=== PATIENT | female | born 1935 | race Caucasian/White ===

== ENCOUNTER 2018-11-01 11:25 | Inpatient (IN) ==
[2018-11-01 12:19] LABS: Basophils % 0.2 % (0.0-0.8); Eosinophils # 0.1 10*3/uL (0.0-0.87); Eosinophils % 0.6 % (0.00-10.9); Hematocrit 28.4 VOL% (35.7-47.0); Hemoglobin 8.5 GM/DL (12.0-16.0); Immature Granulocytes % 0.6 %; Immature Granulocytes Absolute 0.05 #; Lymphocytes # 0.7 10*3/uL (1.4-4.0); Lymphocytes % 7.8 % (21.3-54.2); Mean Corpuscular HGB Conc 29.9 GM/DL (32-36); Mean Corpuscular Hemoglobin 29 PG (27-34); Mean Corpuscular Volume 96.3 FL (87-102); Mean Platelet Volume 10.1 FL (9.6-12.0); Monocytes # 0.8 10*3/uL (0.11-0.8); Monocytes % 9.2 % (1.7-12.7); Neutrophils # 6.9 10*3/uL (1.4-7.4); Neutrophils % 81.6 % (38.7-73.9); Platelet Count 159 T/CUMM (130-400); Red Blood Count 2.95 MC/CUMM (3.8-5.5); Red Cell Distribution Width 12.8 % (9.3-17.3); White Blood Count 8.5 T/CUMM (4-12)
[2018-11-01 12:37] LABS: Albumin 2.5 G/DL (3.4-5.0); Bilirubin,Total 0.9 MG/DL (0.2-1.0); Calcium 8.3 MG/DL (8.5-10.1); Osmolality,Calculated 282.4 MOS/KG (273-304); Potassium 3.1 MMOL/L (3.5-5.1); Total Protein 5.9 G/DL (6.4-8.3)
[2018-11-01] MEDS ORDERED: SODIUM CHLORIDE 0.9% 500 ML IV STA (14:17)
[2018-11-01] MEDS ORDERED: INFLUENZA VIRUS VACCINE 0.5 ML SYRINGE IM ONE (16:30)
[2018-11-01] MEDS: ONDANSETRON 4 MG/2 ML VIAL IV PRN ×2 (16:52→23:34)
[2018-11-01] MEDS: ACETAMINOPHEN 325 MG TABLET PO PRN (16:53)
[2018-11-01] MEDS ORDERED: AZITHROMYCIN INJ 500 MG in SODIUM CHLORIDE 0.9% 250 ML IV SCH (17:00)
[2018-11-01] MEDS ORDERED: MAGNESIUM SULF RIDER 4 GM in PREMIX 1 EACH IV PRN (17:18)
[2018-11-01] MEDS: LEVOFLOXACIN INJ 500 MG in PREMIX 1 EACH IV SCH (17:45)
[2018-11-01] MEDS: SIMVASTATIN 20 MG TABLET PO SCH (17:45)
[2018-11-01] MEDS: ALBUTEROL/IPRATROPIUM 3 ML NEB RESP TX SCH ×2 (19:48→23:41)
[2018-11-01] MEDS: BUDESONIDE/FORMOTEROL 160-4.5 INHALER 6 GM INH SCH (23:27)
[2018-11-01] MEDS: FOLIC ACID 1 MG TABLET PO SCH (23:28)
[2018-11-01] MEDS: POTASSIUM CHLORIDE 20 MEQ TABLET PO PRN (23:28)
[2018-11-01] MEDS: SILDENAFIL 20 MG TABLET PO SCH (23:29)
[2018-11-01] MEDS: FERROUS SULFATE 325 MG TABLET PO SCH (23:29)
[2018-11-01] MEDS: MAGNESIUM SULF RIDER 2 GM in PREMIX 1 EACH IV PRN (23:30)
[2018-11-01] MEDS: ZINC GLUCONATE 50 MG TABLET PO SCH (23:30)
[2018-11-01] MEDS: ASCORBIC ACID 500 MG TABLET PO SCH (23:35)
[2018-11-02] MEDS: MAGNESIUM SULF RIDER 2 GM in PREMIX 1 EACH IV PRN (00:46)
[2018-11-02] MEDS: ACETAMINOPHEN 325 MG TABLET PO PRN ×2 (00:49→16:55)
[2018-11-02] MEDS: ALBUTEROL/IPRATROPIUM 3 ML NEB RESP TX SCH ×6 (03:16→23:51)
[2018-11-02 04:03] LABS: Basophils % 0.3 % (0.0-0.8); Eosinophils % 0.6 % (0.00-10.9); Hematocrit 25.5 VOL% (35.7-47.0); Hemoglobin 7.7 GM/DL (12.0-16.0); Immature Granulocytes % 1.1 %; Immature Granulocytes Absolute 0.07 #; Lymphocytes # 0.8 10*3/uL (1.4-4.0); Lymphocytes % 11.9 % (21.3-54.2); Mean Corpuscular HGB Conc 30.2 GM/DL (32-36); Mean Corpuscular Hemoglobin 29 PG (27-34); Mean Corpuscular Volume 95.5 FL (87-102); Mean Platelet Volume 9.8 FL (9.6-12.0); Monocytes # 0.6 10*3/uL (0.11-0.8); Monocytes % 9.5 % (1.7-12.7); Neutrophils # 5.1 10*3/uL (1.4-7.4); Neutrophils % 76.6 % (38.7-73.9); Platelet Count 156 T/CUMM (130-400); Red Blood Count 2.67 MC/CUMM (3.8-5.5); Red Cell Distribution Width 12.8 % (9.3-17.3); White Blood Count 6.6 T/CUMM (4-12)
[2018-11-02 04:38] LABS: Calcium 8.8 MG/DL (8.5-10.1); Osmolality,Calculated 278.7 MOS/KG (273-304); Risk Ratio 3.15; VLDL CHOLESTEROL 25.4 MG/DL
[2018-11-02] MEDS: LEVOTHYROXINE 75 MCG TABLET PO SCH (07:04)
[2018-11-02] MEDS: POTASSIUM CHLORIDE 20 MEQ TABLET PO PRN ×2 (07:04→16:51)
[2018-11-02] MEDS ORDERED: SODIUM CHLORIDE 0.9% 1,000 ML IV PRN (08:34)
[2018-11-02] MEDS: PANTOPRAZOLE 40 MG TABLET PO SCH (08:51)
[2018-11-02] MEDS: metOLazone 2.5 MG TABLET PO SCH (08:51)
[2018-11-02] MEDS: TERAZOSIN 5 MG CAPSULE PO SCH (08:51)
[2018-11-02] MEDS: SILDENAFIL 20 MG TABLET PO SCH ×3 (08:51→21:20)
[2018-11-02] MEDS: ASPIRIN CHEW 81 MG TABLET PO SCH (08:51)
[2018-11-02] MEDS: POTASSIUM CHLORIDE 20 MEQ TABLET PO SCH (08:51)
[2018-11-02] MEDS: BUDESONIDE/FORMOTEROL 160-4.5 INHALER 6 GM INH SCH ×2 (08:52→21:20)
[2018-11-02] MEDS: BUMETANIDE 1 MG/4 ML VIAL IV SCH (08:52)
[2018-11-02] MEDS: CLINDAMYCIN INJ 600 MG in PREMIX 1 EACH IV SCH ×2 (11:26→21:18)
[2018-11-02] MEDS: SIMVASTATIN 20 MG TABLET PO SCH (16:50)
[2018-11-02] MEDS: LEVOFLOXACIN INJ 500 MG in PREMIX 1 EACH IV SCH (16:51)
[2018-11-02] MEDS ORDERED: POTASSIUM BICARB EFFERVESCENT 25 MEQ TABLET PO ONE (17:42)
[2018-11-02] MEDS ORDERED: VANCOMYCIN INJ 1,500 MG in SODIUM CHLORIDE 0.9% 500 ML IV SCH (20:00)
[2018-11-02] MEDS: ZINC OXIDE PASTE 113 GM TUBE TOP SCH (21:20)
[2018-11-02] MEDS: FOLIC ACID 1 MG TABLET PO SCH (21:20)
[2018-11-02] MEDS: ZINC GLUCONATE 50 MG TABLET PO SCH (21:20)
[2018-11-02] MEDS: FERROUS SULFATE 325 MG TABLET PO SCH (21:20)
[2018-11-02] MEDS: ASCORBIC ACID 500 MG TABLET PO SCH (21:20)
[2018-11-03] MEDS: ALBUTEROL/IPRATROPIUM 3 ML NEB RESP TX SCH ×6 (03:42→23:56)
[2018-11-03 04:31] LABS: Basophils % 0.4 % (0.0-0.8); Eosinophils # 0.1 10*3/uL (0.0-0.87); Eosinophils % 1.9 % (0.00-10.9); Hematocrit 28.8 VOL% (35.7-47.0); Hemoglobin 8.6 GM/DL (12.0-16.0); Immature Granulocytes % 1.3 %; Immature Granulocytes Absolute 0.06 #; Lymphocytes # 0.5 10*3/uL (1.4-4.0); Lymphocytes % 10.9 % (21.3-54.2); Mean Corpuscular HGB Conc 29.9 GM/DL (32-36); Mean Corpuscular Hemoglobin 29 PG (27-34); Mean Corpuscular Volume 95.7 FL (87-102); Mean Platelet Volume 9.9 FL (9.6-12.0); Monocytes # 0.5 10*3/uL (0.11-0.8); Monocytes % 10.3 % (1.7-12.7); Neutrophils # 3.6 10*3/uL (1.4-7.4); Neutrophils % 75.2 % (38.7-73.9); Platelet Count 148 T/CUMM (130-400); Red Blood Count 3.01 MC/CUMM (3.8-5.5); Red Cell Distribution Width 13.9 % (9.3-17.3); White Blood Count 4.8 T/CUMM (4-12)
[2018-11-03 04:59] LABS: Calcium 8.4 MG/DL (8.5-10.1); Osmolality,Calculated 283.3 MOS/KG (273-304); Potassium 3.8 MMOL/L (3.5-5.1)
[2018-11-03] MEDS: LEVOTHYROXINE 75 MCG TABLET PO SCH (06:02)
[2018-11-03] MEDS: metOLazone 2.5 MG TABLET PO SCH (09:11)
[2018-11-03] MEDS: TERAZOSIN 5 MG CAPSULE PO SCH (09:12)
[2018-11-03] MEDS: BUMETANIDE 1 MG/4 ML VIAL IV SCH (09:12)
[2018-11-03] MEDS: POTASSIUM CHLORIDE 20 MEQ TABLET PO SCH (09:12)
[2018-11-03] MEDS: PANTOPRAZOLE 40 MG TABLET PO SCH (09:12)
[2018-11-03] MEDS: ASPIRIN CHEW 81 MG TABLET PO SCH (09:12)
[2018-11-03] MEDS: SILDENAFIL 20 MG TABLET PO SCH ×3 (09:12→21:34)
[2018-11-03] MEDS: ZINC OXIDE PASTE 113 GM TUBE TOP SCH ×2 (09:16→22:22)
[2018-11-03] MEDS: BUDESONIDE/FORMOTEROL 160-4.5 INHALER 6 GM INH SCH ×2 (09:17→22:22)
[2018-11-03] MEDS: ACETAMINOPHEN 325 MG TABLET PO PRN ×3 (09:53→21:40)
[2018-11-03] MEDS: CLINDAMYCIN INJ 600 MG in PREMIX 1 EACH IV SCH ×2 (12:15→22:22)
[2018-11-03] MEDS: LEVOFLOXACIN INJ 500 MG in PREMIX 1 EACH IV SCH (16:46)
[2018-11-03] MEDS: SIMVASTATIN 20 MG TABLET PO SCH (16:47)
[2018-11-03] MEDS: POLYETHYLENE GLYCOL POWDER 17 GM PACK PO PRN (16:53)
[2018-11-03] MEDS: FERROUS SULFATE 325 MG TABLET PO SCH (21:34)
[2018-11-03] MEDS: ASCORBIC ACID 500 MG TABLET PO SCH (21:34)
[2018-11-03] MEDS: FOLIC ACID 1 MG TABLET PO SCH (21:34)
[2018-11-03] MEDS: ZINC GLUCONATE 50 MG TABLET PO SCH (21:34)
[2018-11-04] MEDS: ACETAMINOPHEN 325 MG TABLET PO PRN ×2 (02:07→21:50)
[2018-11-04] MEDS: ALBUTEROL/IPRATROPIUM 3 ML NEB RESP TX SCH ×6 (04:12→23:26)
[2018-11-04] MEDS: CLINDAMYCIN INJ 600 MG in PREMIX 1 EACH IV SCH ×3 (05:16→22:01)
[2018-11-04 06:19] LABS: Basophils % 0.2 % (0.0-0.8); Eosinophils # 0.2 10*3/uL (0.0-0.87); Eosinophils % 3.6 % (0.00-10.9); Hematocrit 28.5 VOL% (35.7-47.0); Hemoglobin 8.5 GM/DL (12.0-16.0); Immature Granulocytes % 1.3 %; Immature Granulocytes Absolute 0.06 #; Lymphocytes # 0.6 10*3/uL (1.4-4.0); Lymphocytes % 12.1 % (21.3-54.2); Mean Corpuscular HGB Conc 29.8 GM/DL (32-36); Mean Corpuscular Hemoglobin 29 PG (27-34); Mean Platelet Volume 9.7 FL (9.6-12.0); Monocytes # 0.4 10*3/uL (0.11-0.8); Monocytes % 9.3 % (1.7-12.7); Neutrophils # 3.5 10*3/uL (1.4-7.4); Neutrophils % 73.5 % (38.7-73.9); Platelet Count 158 T/CUMM (130-400); Red Blood Count 2.97 MC/CUMM (3.8-5.5); Red Cell Distribution Width 13.3 % (9.3-17.3); White Blood Count 4.7 T/CUMM (4-12)
[2018-11-04] MEDS: LEVOTHYROXINE 75 MCG TABLET PO SCH (06:19)
[2018-11-04 06:30] LABS: Osmolality,Calculated 281.5 MOS/KG (273-304); Potassium 3.6 MMOL/L (3.5-5.1)
[2018-11-04] MEDS: ASPIRIN CHEW 81 MG TABLET PO SCH (10:18)
[2018-11-04] MEDS: POTASSIUM CHLORIDE 20 MEQ TABLET PO SCH (10:19)
[2018-11-04] MEDS: PANTOPRAZOLE 40 MG TABLET PO SCH (10:19)
[2018-11-04] MEDS: TERAZOSIN 5 MG CAPSULE PO SCH (10:19)
[2018-11-04] MEDS: SILDENAFIL 20 MG TABLET PO SCH ×3 (10:19→21:47)
[2018-11-04] MEDS: metOLazone 2.5 MG TABLET PO SCH (10:19)
[2018-11-04] MEDS: POTASSIUM CHLORIDE 20 MEQ TABLET PO PRN (10:20)
[2018-11-04] MEDS: ZINC OXIDE PASTE 113 GM TUBE TOP SCH ×2 (10:22→21:43)
[2018-11-04] MEDS: BUMETANIDE 1 MG/4 ML VIAL IV SCH (10:22)
[2018-11-04] MEDS: BUDESONIDE/FORMOTEROL 160-4.5 INHALER 6 GM INH SCH ×2 (10:22→21:52)
[2018-11-04] MEDS: LEVOFLOXACIN INJ 500 MG in PREMIX 1 EACH IV SCH (16:16)
[2018-11-04] MEDS: SIMVASTATIN 20 MG TABLET PO SCH (16:18)
[2018-11-04] MEDS: LACTULOSE 20 GM/30 ML UDCUP PO PRN (16:24)
[2018-11-04] MEDS: DOCUSATE SODIUM 100 MG CAPSULE PO PRN (16:24)
[2018-11-04] MEDS: FOLIC ACID 1 MG TABLET PO SCH (21:42)
[2018-11-04] MEDS: BACITRACIN OINT 0.9 GM PACK TOP SCH (21:42)
[2018-11-04] MEDS: FERROUS SULFATE 325 MG TABLET PO SCH (21:42)
[2018-11-04] MEDS: ZINC GLUCONATE 50 MG TABLET PO SCH (21:47)
[2018-11-04] MEDS: ASCORBIC ACID 500 MG TABLET PO SCH (21:50)
[2018-11-05] MEDS: ALBUTEROL/IPRATROPIUM 3 ML NEB RESP TX SCH ×6 (04:01→23:48)
[2018-11-05] MEDS: CLINDAMYCIN INJ 600 MG in PREMIX 1 EACH IV SCH ×3 (05:32→23:40)
[2018-11-05] MEDS: LEVOTHYROXINE 75 MCG TABLET PO SCH (06:02)
[2018-11-05] MEDS: SILDENAFIL 20 MG TABLET PO SCH ×3 (08:16→21:58)
[2018-11-05] MEDS: BACITRACIN OINT 0.9 GM PACK TOP SCH (08:16)
[2018-11-05] MEDS: POTASSIUM CHLORIDE 20 MEQ TABLET PO SCH (08:16)
[2018-11-05] MEDS: metOLazone 2.5 MG TABLET PO SCH (08:16)
[2018-11-05] MEDS: TERAZOSIN 5 MG CAPSULE PO SCH (08:16)
[2018-11-05] MEDS: ASPIRIN CHEW 81 MG TABLET PO SCH (08:17)
[2018-11-05] MEDS: PANTOPRAZOLE 40 MG TABLET PO SCH (08:17)
[2018-11-05] MEDS: BUDESONIDE/FORMOTEROL 160-4.5 INHALER 6 GM INH SCH ×2 (08:17→21:58)
[2018-11-05] MEDS: ZINC OXIDE PASTE 113 GM TUBE TOP SCH ×2 (08:17→21:58)
[2018-11-05] MEDS: BUMETANIDE 1 MG/4 ML VIAL IV SCH (08:17)
[2018-11-05] MEDS ORDERED: TUBERCULIN SKIN TEST 0.1 ML SYRINGE INTRADERM ONE (12:59)
[2018-11-05] MEDS: SIMVASTATIN 20 MG TABLET PO SCH (16:00)
[2018-11-05] MEDS: LEVOFLOXACIN INJ 500 MG in PREMIX 1 EACH IV SCH (16:03)
[2018-11-05] MEDS: FERROUS SULFATE 325 MG TABLET PO SCH (21:58)
[2018-11-05] MEDS: FOLIC ACID 1 MG TABLET PO SCH (21:58)
[2018-11-05] MEDS: ASCORBIC ACID 500 MG TABLET PO SCH (21:59)
[2018-11-05] MEDS: ZINC GLUCONATE 50 MG TABLET PO SCH (21:59)
[2018-11-06] MEDS: ALBUTEROL/IPRATROPIUM 3 ML NEB RESP TX SCH ×6 (03:38→23:25)
[2018-11-06 05:40] LABS: Calcium 8.5 MG/DL (8.5-10.1); Osmolality,Calculated 283.4 MOS/KG (273-304); Potassium 3.6 MMOL/L (3.5-5.1)
[2018-11-06] MEDS: CLINDAMYCIN INJ 600 MG in PREMIX 1 EACH IV SCH ×3 (06:00→21:13)
[2018-11-06] MEDS: LEVOTHYROXINE 75 MCG TABLET PO SCH (07:49)
[2018-11-06] MEDS: PANTOPRAZOLE 40 MG TABLET PO SCH (08:19)
[2018-11-06] MEDS: TERAZOSIN 5 MG CAPSULE PO SCH (08:19)
[2018-11-06] MEDS: ASPIRIN CHEW 81 MG TABLET PO SCH (08:19)
[2018-11-06] MEDS: BUMETANIDE 1 MG/4 ML VIAL IV SCH (08:19)
[2018-11-06] MEDS: SILDENAFIL 20 MG TABLET PO SCH ×3 (08:19→20:43)
[2018-11-06] MEDS: POTASSIUM CHLORIDE 20 MEQ TABLET PO SCH (08:19)
[2018-11-06] MEDS: BUDESONIDE/FORMOTEROL 160-4.5 INHALER 6 GM INH SCH ×2 (08:20→20:43)
[2018-11-06] MEDS: BACITRACIN OINT 0.9 GM PACK TOP SCH (08:20)
[2018-11-06] MEDS: ZINC OXIDE PASTE 113 GM TUBE TOP SCH ×2 (08:20→20:43)
[2018-11-06] MEDS: DICLOFENAC 1% GEL 100 GM TUBE TOP SCH ×2 (14:53→20:42)
[2018-11-06] MEDS: LEVOFLOXACIN INJ 500 MG in PREMIX 1 EACH IV SCH (16:24)
[2018-11-06] MEDS: SIMVASTATIN 20 MG TABLET PO SCH (16:59)
[2018-11-06] MEDS: LACTULOSE 20 GM/30 ML UDCUP PO PRN (20:42)
[2018-11-06] MEDS: ZINC GLUCONATE 50 MG TABLET PO SCH (20:42)
[2018-11-06] MEDS: ASCORBIC ACID 500 MG TABLET PO SCH (20:42)
[2018-11-06] MEDS: POLYETHYLENE GLYCOL POWDER 17 GM PACK PO PRN (20:42)
[2018-11-06] MEDS: FOLIC ACID 1 MG TABLET PO SCH (20:43)
[2018-11-06] MEDS: ACETAMINOPHEN 325 MG TABLET PO PRN (20:43)
[2018-11-06] MEDS: FERROUS SULFATE 325 MG TABLET PO SCH (20:43)
[2018-11-07] MEDS: ALBUTEROL/IPRATROPIUM 3 ML NEB RESP TX SCH ×5 (03:20→20:36)
[2018-11-07 05:03] LABS: Basophils % 0.4 % (0.0-0.8); Eosinophils # 0.2 10*3/uL (0.0-0.87); Eosinophils % 3.4 % (0.00-10.9); Hematocrit 28.5 VOL% (35.7-47.0); Hemoglobin 8.5 GM/DL (12.0-16.0); Immature Granulocytes % 1.1 %; Immature Granulocytes Absolute 0.06 #; Lymphocytes # 0.8 10*3/uL (1.4-4.0); Mean Corpuscular HGB Conc 29.8 GM/DL (32-36); Mean Corpuscular Hemoglobin 29 PG (27-34); Mean Corpuscular Volume 96.6 FL (87-102); Mean Platelet Volume 10.2 FL (9.6-12.0); Monocytes # 0.4 10*3/uL (0.11-0.8); Monocytes % 7.7 % (1.7-12.7); Neutrophils # 4.1 10*3/uL (1.4-7.4); Neutrophils % 72.4 % (38.7-73.9); Platelet Count 156 T/CUMM (130-400); Red Blood Count 2.95 MC/CUMM (3.8-5.5); Red Cell Distribution Width 12.7 % (9.3-17.3); White Blood Count 5.6 T/CUMM (4-12)
[2018-11-07 06:38] LABS: Calcium 8.1 MG/DL (8.5-10.1); Osmolality,Calculated 286.1 MOS/KG (273-304); Potassium 3.4 MMOL/L (3.5-5.1)
[2018-11-07] MEDS: CLINDAMYCIN INJ 600 MG in PREMIX 1 EACH IV SCH ×3 (06:44→21:30)
[2018-11-07] MEDS: LEVOTHYROXINE 75 MCG TABLET PO SCH (06:57)
[2018-11-07] MEDS: TERAZOSIN 5 MG CAPSULE PO SCH (08:15)
[2018-11-07] MEDS: SILDENAFIL 20 MG TABLET PO SCH ×3 (08:15→20:45)
[2018-11-07] MEDS: POTASSIUM CHLORIDE 20 MEQ TABLET PO SCH (08:15)
[2018-11-07] MEDS: ASPIRIN CHEW 81 MG TABLET PO SCH (08:15)
[2018-11-07] MEDS: ACETAMINOPHEN 325 MG TABLET PO PRN (08:15)
[2018-11-07] MEDS: BACITRACIN OINT 0.9 GM PACK TOP SCH (08:16)
[2018-11-07] MEDS: BUMETANIDE 1 MG/4 ML VIAL IV SCH (08:16)
[2018-11-07] MEDS: ZINC OXIDE PASTE 113 GM TUBE TOP SCH ×2 (08:16→20:47)
[2018-11-07] MEDS: BUDESONIDE/FORMOTEROL 160-4.5 INHALER 6 GM INH SCH ×2 (08:16→20:47)
[2018-11-07] MEDS: DICLOFENAC 1% GEL 100 GM TUBE TOP SCH ×3 (08:16→20:47)
[2018-11-07] MEDS: PANTOPRAZOLE 40 MG TABLET PO SCH (08:20)
[2018-11-07] MEDS ORDERED: traMADol 50 MG TABLET PO PRN (12:08)
[2018-11-07] MEDS: POTASSIUM CHLORIDE 20 MEQ TABLET PO PRN ×2 (14:19→20:46)
[2018-11-07] MEDS: LEVOFLOXACIN INJ 500 MG in PREMIX 1 EACH IV SCH (16:02)
[2018-11-07] MEDS: SIMVASTATIN 20 MG TABLET PO SCH (16:08)
[2018-11-07] MEDS: FOLIC ACID 1 MG TABLET PO SCH (20:45)
[2018-11-07] MEDS: POLYETHYLENE GLYCOL POWDER 17 GM PACK PO PRN (20:45)
[2018-11-07] MEDS: DOCUSATE SODIUM 100 MG CAPSULE PO PRN (20:46)
[2018-11-07] MEDS: FERROUS SULFATE 325 MG TABLET PO SCH (20:46)
[2018-11-07] MEDS: ASCORBIC ACID 500 MG TABLET PO SCH (20:46)
[2018-11-07] MEDS: ZINC GLUCONATE 50 MG TABLET PO SCH (20:48)
[2018-11-08] MEDS: ALBUTEROL/IPRATROPIUM 3 ML NEB RESP TX SCH ×4 (00:41→11:16)
[2018-11-08] MEDS: LEVOTHYROXINE 75 MCG TABLET PO SCH (06:35)
[2018-11-08] MEDS: CLINDAMYCIN INJ 600 MG in PREMIX 1 EACH IV SCH ×2 (06:35→15:23)
[2018-11-08] MEDS: ASPIRIN CHEW 81 MG TABLET PO SCH (08:46)
[2018-11-08] MEDS: PANTOPRAZOLE 40 MG TABLET PO SCH (08:46)
[2018-11-08] MEDS: DOCUSATE SODIUM 100 MG CAPSULE PO PRN (08:46)
[2018-11-08] MEDS: POTASSIUM CHLORIDE 20 MEQ TABLET PO SCH (08:46)
[2018-11-08] MEDS: SILDENAFIL 20 MG TABLET PO SCH (08:46)
[2018-11-08] MEDS: BUMETANIDE 1 MG/4 ML VIAL IV SCH (08:46)
[2018-11-08] MEDS: TERAZOSIN 5 MG CAPSULE PO SCH (08:46)
[2018-11-08] MEDS: BUDESONIDE/FORMOTEROL 160-4.5 INHALER 6 GM INH SCH (08:47)
[2018-11-08] MEDS: DICLOFENAC 1% GEL 100 GM TUBE TOP SCH (08:47)
[2018-11-08] MEDS ORDERED: metOLazone 2.5 MG TABLET PO SCH (09:00)
[2018-11-08 15:14] VITALS: BP 116/54
[2018-11-08] MEDS: ZINC OXIDE PASTE 113 GM TUBE TOP SCH (15:17)
[2018-11-08] MEDS: BACITRACIN OINT 0.9 GM PACK TOP SCH (15:17)
== END 2018-11-08 14:06 | DRG 194 ==
LOC: EDUNIT# → EDBD → N.ED 11:25 → N.EDINP 14:27 → SUATTDRO 14:27 → N.EDINP 15:36 → N.5E 15:52
PROVIDERS: ADMIT Internal Medicine; ATTEND Internal Medicine

== ENCOUNTER 2019-08-29 12:59 | Inpatient (IN) ==
[2019-08-29] MEDS ORDERED: NOREPINEPHRINE 4 MG/4 ML VIAL IV ONE (15:40)
[2019-08-29] MEDS ORDERED: NOREPINEPHRINE 8 MG in SODIUM CHLORIDE 0.9% 242 ML IV PRN (15:42)
[2019-08-29] MEDS ORDERED: LORazepam INJ 40 MG in DEXTROSE 5% 30 ML IV PRN (15:45)
[2019-08-29] MEDS ORDERED: MIDAZOLAM 100 MG in SODIUM CHLORIDE 0.9% 80 ML IV PRN (15:45)
[2019-08-29] MEDS: SODIUM CHLORIDE 0.9% 1,000 ML IV SCH (15:52)
[2019-08-29 16:07] LABS: ABG Base Excess 6.9 MMOL/L (-2.5-2.5); ABG HCO3 30.8 MMOL/L (20-26); ABG PCO2 68.8 MM HG (35-48); ABG PH 7.312 (7.35-7.45); ABG TCO2 32.7 MMOL/L (23-27); Allen Test Positive; Pt O2 Delivery Device Ventilator
[2019-08-29] MEDS ORDERED: ALBUTEROL 2.5 MG/3 ML NEB RESP TX PRN (16:18)
[2019-08-29] MEDS ORDERED: POTASSIUM CHLORIDE RIDER 10 MEQ in PREMIX 1 EACH IV PRN (16:22)
[2019-08-29] MEDS ORDERED: GLUCAGON 1 MG VIAL IM PRN (16:39)
[2019-08-29] MEDS ORDERED: MAGNESIUM SULF RIDER 4 GM in PREMIX 1 EACH IV PRN (16:39)
[2019-08-29] MEDS ORDERED: DEXTROSE 50% 25 GM/50 ML VIAL IV PRN (16:39)
[2019-08-29] MEDS ORDERED: MAGNESIUM SULF RIDER 2 GM in PREMIX 1 EACH IV PRN (16:39)
[2019-08-29] MEDS: FAMOTIDINE 20 MG/2 ML VIAL IV SCH (17:04)
[2019-08-29] MEDS: INSULIN REGULAR 100 UNIT/ML SUBCUT SCH (17:05)
[2019-08-29] MEDS: methylPREDNISolone SOD SUC 40 MG/1 ML VIAL IV SCH (17:05)
[2019-08-29] MEDS: LEVOFLOXACIN INJ 750 MG in PREMIX 1 EACH IV SCH (17:52)
[2019-08-29] MEDS: PROPOFOL 1,000 MG/100 ML BOTTLE IV SCH (17:52)
[2019-08-29 17:55] LABS: Amorphous Crystals,Urine Occasional /HPF (Few); Apearance,Urine CLOUDY (Clear); Bilirubin,Urine Negative (Negative); Blood, Urine Negative (Negative); Glucose,Urine (UA) Negative (Negative); Ketones,Urine Negative (Negative); Mucus,Urine Occasional /LPF (Occasional); Nitrite,Urine Negative (Negative); Protein,Urine 30 MG/DL; RBC,Urine 4 /HPF (0-4); Squamous Epithelial Cell,Urine Few /HPF (0-10); Transitional Epi Cells,Urine Occasional /HPF (<1); Urine Specific Gravity 1.024 (1.001-1.035); Urine Urobilinogen < 2.0 EU/DL (0.2-1.0); WBC,Urine 33 /HPF (0-6)
[2019-08-29 17:57] LABS: Urine Color y (Yellow)
[2019-08-29 18:10] LABS: Bilirubin,Total 0.7 MG/DL (0.2-1.0); Osmolality,Calculated 302.4 MOS/KG (273-304); Total Protein 5.4 G/DL (6.4-8.3)
[2019-08-29 18:13] LABS: Basophils % 0.1 % (0.0-0.8); Hematocrit 27.8 VOL% (35.7-47.0); Hemoglobin 7.8 GM/DL (12.0-16.0); Immature Granulocytes Absolute 0.08 #; Lymphocytes # 0.4 10*3/uL (1.4-4.0); Lymphocytes % 5.1 % (21.3-54.2); Mean Corpuscular HGB Conc 28.1 GM/DL (32-36); Mean Corpuscular Volume 103.3 FL (87-102); Monocytes % 7.4 % (1.7-12.7); Neutrophils % 86.4 % (38.7-73.9); Platelet Count 132 T/CUMM (130-400); Red Blood Count 2.69 MC/CUMM (3.8-5.5); Red Cell Distribution Width 14.6 % (9.3-17.3); White Blood Count 8.1 T/CUMM (4-12)
[2019-08-29 19:02] LABS: Band Neutrophils 6 % (0-10); Lymphocytes 7 % (20-55); Segmented Neutrophils 83 % (50-85); Total Cells Counted 100
[2019-08-29 19:03] LABS: Hypochromasia 1+; Macrocytosis 2+; Ovalocytes Few; Polychromasia 1+
[2019-08-29 19:04] LABS: Tear Drop Cells Few
[2019-08-29 19:05] LABS: Platelet Estimate Adequate
[2019-08-29 19:06] LABS: Toxic Granulation 1+
[2019-08-29] MEDS: ALBUTEROL/IPRATROPIUM 3 ML NEB RESP TX SCH (20:21)
[2019-08-29] MEDS: ENOXAPARIN 80 MG/0.8 ML SYRINGE SUBCUT SCH (20:37)
[2019-08-29] MEDS: AZTREONAM 2,000 MG in SYRINGE 1 EACH IV SCH (20:37)
[2019-08-29] MEDS: VANCOMYCIN INJ 1,250 MG in SODIUM CHLORIDE 0.9% 250 ML IV SCH (20:37)
[2019-08-29] MEDS ORDERED: SODIUM CHLORIDE 0.9% 1,000 ML IV SCH (22:30)
[2019-08-30] MEDS: INSULIN REGULAR 100 UNIT/ML SUBCUT SCH ×5 (00:24→23:36)
[2019-08-30] MEDS: ALBUTEROL/IPRATROPIUM 3 ML NEB RESP TX SCH ×4 (01:27→19:49)
[2019-08-30] MEDS: AZTREONAM 2,000 MG in SYRINGE 1 EACH IV SCH ×4 (01:35→20:06)
[2019-08-30] MEDS: methylPREDNISolone SOD SUC 40 MG/1 ML VIAL IV SCH ×3 (01:36→16:44)
[2019-08-30] MEDS: SODIUM CHLORIDE 0.9% 1,000 ML IV SCH ×2 (01:37→14:30)
[2019-08-30 03:47] LABS: ABG Base Excess 5.6 MMOL/L (-2.5-2.5); ABG HCO3 29.5 MMOL/L (20-26); ABG PCO2 45.8 MM HG (35-48); ABG PH 7.433 (7.35-7.45); ABG TCO2 27.9 MMOL/L (23-27); Allen Test Positive; Pt O2 Delivery Device Ventilator
[2019-08-30] MEDS: PROPOFOL 1,000 MG/100 ML BOTTLE IV SCH ×4 (03:59→22:27)
[2019-08-30] MEDS: FAMOTIDINE 20 MG/2 ML VIAL IV SCH ×2 (03:59→16:43)
[2019-08-30 04:50] LABS: Risk Ratio 2.62; Thyroid Stimulating Hormone 0.218 uIU/ml (0.358-3.74)
[2019-08-30] MEDS: ENOXAPARIN 80 MG/0.8 ML SYRINGE SUBCUT SCH ×2 (09:18→20:06)
[2019-08-30] MEDS: VANCOMYCIN INJ 1,250 MG in SODIUM CHLORIDE 0.9% 250 ML IV SCH ×2 (09:18→20:06)
[2019-08-30] MEDS: LEVOFLOXACIN INJ 750 MG in PREMIX 1 EACH IV SCH (16:43)
[2019-08-31] MEDS: ALBUTEROL/IPRATROPIUM 3 ML NEB RESP TX SCH ×4 (00:57→20:40)
[2019-08-31] MEDS: AZTREONAM 2,000 MG in SYRINGE 1 EACH IV SCH ×4 (01:33→21:11)
[2019-08-31] MEDS: methylPREDNISolone SOD SUC 40 MG/1 ML VIAL IV SCH ×2 (01:33→16:02)
[2019-08-31] MEDS: SODIUM CHLORIDE 0.9% 1,000 ML IV SCH ×2 (02:06→15:41)
[2019-08-31 03:13] LABS: ABG Base Excess 2.1 MMOL/L (-2.5-2.5); ABG HCO3 26.9 MMOL/L (20-26); ABG Oxygen Saturation 98.7 % (95-100); ABG PCO2 42.7 MM HG (35-48); ABG PH 7.417 (7.35-7.45); ABG PO2 149.8 MM HG (80-95); ABG TCO2 28.2 MMOL/L (23-27)
[2019-08-31 04:50] LABS: Hematocrit 25.6 VOL% (35.7-47.0); Hemoglobin 7.6 GM/DL (12.0-16.0); Immature Granulocytes % 0.5 %; Immature Granulocytes Absolute 0.03 #; Lymphocytes # 0.2 10*3/uL (1.4-4.0); Lymphocytes % 3.2 % (21.3-54.2); Mean Corpuscular HGB Conc 29.7 GM/DL (32-36); Mean Corpuscular Volume 98.5 FL (87-102); Mean Platelet Volume 10.6 FL (9.6-12.0); Monocytes % 4.2 % (1.7-12.7); Neutrophils % 92.1 % (38.7-73.9); Platelet Count 112 T/CUMM (130-400); Red Cell Distribution Width 14.6 % (9.3-17.3)
[2019-08-31 05:19] LABS: Band Neutrophils 7 % (0-10); Hypochromasia 1+; Lymphocytes 3 % (20-55); Ovalocytes Slight; Platelet Estimate Decreased; Segmented Neutrophils 88 % (50-85); Total Cells Counted 100
[2019-08-31 05:41] LABS: Calcium 8.5 MG/DL (8.5-10.1); Osmolality,Calculated 304.6 MOS/KG (273-304)
[2019-08-31] MEDS: INSULIN REGULAR 100 UNIT/ML SUBCUT SCH ×3 (06:27→19:17)
[2019-08-31] MEDS: FAMOTIDINE 20 MG/2 ML VIAL IV SCH ×2 (06:27→16:02)
[2019-08-31] MEDS: PROPOFOL 1,000 MG/100 ML BOTTLE IV SCH ×4 (07:53→21:12)
[2019-08-31] MEDS ORDERED: DEXTROSE 50% 25 GM/50 ML VIAL IV PRN (08:18)
[2019-08-31] MEDS ORDERED: GLUCAGON 1 MG VIAL IM PRN (08:18)
[2019-08-31] MEDS: ENOXAPARIN 80 MG/0.8 ML SYRINGE SUBCUT SCH ×2 (09:39→21:11)
[2019-08-31] MEDS: POTASSIUM CHLORIDE 20 MEQ/15 ML UDCUP PER TUBE SCH ×2 (09:39→16:01)
[2019-08-31] MEDS: VANCOMYCIN INJ 1,250 MG in SODIUM CHLORIDE 0.9% 250 ML IV SCH (09:48)
[2019-08-31] MEDS: LACTATED RINGERS 1,000 ML IV SCH ×2 (09:55→19:01)
[2019-08-31] MEDS ORDERED: POTASSIUM CHLORIDE 20 MEQ/15 ML UDCUP ONE (15:55)
[2019-08-31] MEDS: LEVOFLOXACIN INJ 750 MG in PREMIX 1 EACH IV SCH (16:02)
[2019-08-31] MEDS ORDERED: SODIUM CHLORIDE 0.9% 100 ML IV ONE (20:56)
[2019-09-01] MEDS: methylPREDNISolone SOD SUC 40 MG/1 ML VIAL IV SCH ×2 (00:17→14:30)
[2019-09-01] MEDS: LACTATED RINGERS 1,000 ML IV SCH ×4 (00:17→17:15)
[2019-09-01] MEDS: INSULIN REGULAR 100 UNIT/ML SUBCUT SCH ×4 (00:17→18:21)
[2019-09-01] MEDS: ALBUTEROL/IPRATROPIUM 3 ML NEB RESP TX SCH ×4 (00:40→19:54)
[2019-09-01] MEDS: AZTREONAM 2,000 MG in SYRINGE 1 EACH IV SCH ×4 (02:56→21:13)
[2019-09-01] MEDS: PROPOFOL 1,000 MG/100 ML BOTTLE IV SCH ×2 (03:57→17:15)
[2019-09-01 04:12] LABS: ABG Base Excess 0.8 MMOL/L (-2.5-2.5); ABG HCO3 23.8 MMOL/L (20-26); ABG Oxygen Saturation 98.8 % (95-100); ABG PCO2 31.3 MM HG (35-48); ABG PH 7.499 (7.35-7.45); ABG PO2 194.1 MM HG (80-95); ABG TCO2 24.8 MMOL/L (23-27); Pt O2 Delivery Device Ventilator
[2019-09-01] MEDS: FAMOTIDINE 20 MG/2 ML VIAL IV SCH ×2 (05:15→17:15)
[2019-09-01 05:19] LABS: Hematocrit 24.8 VOL% (35.7-47.0); Hemoglobin 7.4 GM/DL (12.0-16.0); Immature Granulocytes % 1.2 %; Immature Granulocytes Absolute 0.05 #; Lymphocytes # 0.2 10*3/uL (1.4-4.0); Lymphocytes % 4.7 % (21.3-54.2); Mean Corpuscular HGB Conc 29.8 GM/DL (32-36); Mean Corpuscular Volume 96.9 FL (87-102); Mean Platelet Volume 11.5 FL (9.6-12.0); Monocytes % 2.3 % (1.7-12.7); Neutrophils % 91.8 % (38.7-73.9); Platelet Count 109 T/CUMM (130-400); Red Blood Count 2.56 MC/CUMM (3.8-5.5); Red Cell Distribution Width 14.8 % (9.3-17.3); White Blood Count 4.3 T/CUMM (4-12)
[2019-09-01 05:48] LABS: Band Neutrophils 2 % (0-10); Lymphocytes 3 % (20-55); Platelet Estimate Decreased; Segmented Neutrophils 93 % (50-85); Total Cells Counted 100
[2019-09-01 05:49] LABS: Hypochromasia 1+; Ovalocytes Slight
[2019-09-01 06:03] LABS: Calcium 9.1 MG/DL (8.5-10.1); Osmolality,Calculated 305.7 MOS/KG (273-304)
[2019-09-01] MEDS: ENOXAPARIN 80 MG/0.8 ML SYRINGE SUBCUT SCH ×2 (09:20→21:13)
[2019-09-01] MEDS ORDERED: VANCOMYCIN INJ 1,250 MG in SODIUM CHLORIDE 0.9% 250 ML IV SCH (10:00)
[2019-09-01] MEDS ORDERED: hydrALAZINE 20 MG/1 ML VIAL IV PRN (12:43)
[2019-09-01] MEDS: SILDENAFIL 20 MG TABLET PO SCH ×2 (15:35→22:12)
[2019-09-01] MEDS: SIMVASTATIN 20 MG TABLET PO SCH (17:15)
[2019-09-01] MEDS: LEVOFLOXACIN INJ 750 MG in PREMIX 1 EACH IV SCH (17:15)
[2019-09-01] MEDS: MORPHINE 4 MG/1 ML VIAL IV PRN (19:28)
[2019-09-01] MEDS ORDERED: SODIUM CHLORIDE 0.9% 500 ML IV ONE (19:42)
[2019-09-01] MEDS ORDERED: dilTIAZem Drip 125 MG/125 ML PREMIX IV SCH ×2 (21:00→22:00)
[2019-09-02] MEDS: LACTATED RINGERS 1,000 ML IV SCH ×2 (00:33→08:45)
[2019-09-02] MEDS: INSULIN REGULAR 100 UNIT/ML SUBCUT SCH ×4 (00:34→19:34)
[2019-09-02] MEDS: ALBUTEROL/IPRATROPIUM 3 ML NEB RESP TX SCH ×4 (01:19→19:35)
[2019-09-02] MEDS: methylPREDNISolone SOD SUC 40 MG/1 ML VIAL IV SCH ×2 (02:09→15:37)
[2019-09-02] MEDS: AZTREONAM 2,000 MG in SYRINGE 1 EACH IV SCH ×4 (02:09→21:06)
[2019-09-02] MEDS: MORPHINE 4 MG/1 ML VIAL IV PRN (02:29)
[2019-09-02] MEDS: FAMOTIDINE 20 MG/2 ML VIAL IV SCH ×2 (05:25→19:42)
[2019-09-02 05:35] LABS: Basophils % 0.1 % (0.0-0.8); Hematocrit 25.2 VOL% (35.7-47.0); Hemoglobin 7.3 GM/DL (12.0-16.0); Immature Granulocytes % 1.7 %; Immature Granulocytes Absolute 0.27 #; Lymphocytes # 0.7 10*3/uL (1.4-4.0); Mean Platelet Volume 10.7 FL (9.6-12.0); Monocytes % 2.4 % (1.7-12.7); NRBC # 0.02 10*3/uL; Neutrophils % 91.8 % (38.7-73.9); Platelet Count 217 T/CUMM (130-400); Red Blood Count 2.52 MC/CUMM (3.8-5.5); White Blood Count 16.4 T/CUMM (4-12)
[2019-09-02 05:51] LABS: Calcium 8.4 MG/DL (8.5-10.1); Osmolality,Calculated 306.4 MOS/KG (273-304)
[2019-09-02 06:03] LABS: Anisocytosis Slight; Band Neutrophils 1 % (0-10); Lymphocytes 5 % (20-55); Macrocytosis Slight; Platelet Estimate Normal; Segmented Neutrophils 91 % (50-85); Total Cells Counted 100
[2019-09-02] MEDS: ASPIRIN CHEW 81 MG TABLET PO SCH (09:21)
[2019-09-02] MEDS: SILDENAFIL 20 MG TABLET PO SCH ×3 (09:21→21:07)
[2019-09-02] MEDS: APIXABAN 5 MG TABLET PO SCH ×2 (11:30→21:07)
[2019-09-02] MEDS: METOPROLOL TARTRATE 25 MG TABLET PO SCH ×2 (11:30→21:07)
[2019-09-02 14:10] LABS: % Iron Saturation 23.8 % (18-50); Ferritin 123.5 ng/ml (8-252)
[2019-09-02 14:21] LABS: Folate > 24.0 NG/ML (5.4-24.0); Vitamin B12 425 PG/ML (211-911)
[2019-09-02] MEDS: PROPOFOL 1,000 MG/100 ML BOTTLE IV SCH (17:41)
[2019-09-02] MEDS: ENOXAPARIN 80 MG/0.8 ML SYRINGE SUBCUT SCH (19:21)
[2019-09-02] MEDS: LEVOFLOXACIN INJ 750 MG in PREMIX 1 EACH IV SCH (19:41)
[2019-09-02] MEDS: SIMVASTATIN 20 MG TABLET PO SCH (19:42)
[2019-09-03] MEDS: INSULIN REGULAR 100 UNIT/ML SUBCUT SCH ×4 (00:18→18:44)
[2019-09-03] MEDS: ALBUTEROL/IPRATROPIUM 3 ML NEB RESP TX SCH ×4 (00:40→19:58)
[2019-09-03] MEDS: methylPREDNISolone SOD SUC 40 MG/1 ML VIAL IV SCH ×2 (02:10→14:26)
[2019-09-03] MEDS: AZTREONAM 2,000 MG in SYRINGE 1 EACH IV SCH ×4 (02:11→21:00)
[2019-09-03 04:22] LABS: Basophils % 0.1 % (0.0-0.8); Hematocrit 18.1 VOL% (35.7-47.0); Immature Granulocytes % 1.9 %; Immature Granulocytes Absolute 0.45 #; Lymphocytes # 0.8 10*3/uL (1.4-4.0); Lymphocytes % 3.3 % (21.3-54.2); Mean Corpuscular HGB Conc 29.3 GM/DL (32-36); Mean Corpuscular Volume 101.1 FL (87-102); Mean Platelet Volume 10.2 FL (9.6-12.0); Monocytes % 4.2 % (1.7-12.7); NRBC # 0.07 10*3/uL; Neutrophils % 90.5 % (38.7-73.9); Platelet Count 226 T/CUMM (130-400); Red Blood Count 1.79 MC/CUMM (3.8-5.5); Red Cell Distribution Width 15.4 % (9.3-17.3); White Blood Count 24.1 T/CUMM (4-12)
[2019-09-03 04:25] LABS: Calcium 8.6 MG/DL (8.5-10.1); Osmolality,Calculated 309.6 MOS/KG (273-304)
[2019-09-03 04:32] LABS: Hemoglobin 5.3 GM/DL (12.0-16.0)
[2019-09-03] MEDS: FAMOTIDINE 20 MG/2 ML VIAL IV SCH ×2 (04:37→17:56)
[2019-09-03 04:47] LABS: Hypochromasia 1+; Lymphocytes 3 % (20-55); Ovalocytes Slight; Platelet Estimate Adequate; Segmented Neutrophils 95 % (50-85); Total Cells Counted 100
[2019-09-03 04:48] LABS: Macrocytosis Slight; Polychromasia Slight
[2019-09-03] MEDS ORDERED: ONDANSETRON 4 MG/2 ML VIAL ONE (05:08)
[2019-09-03 05:43] LABS: Hemoglobin 5.1 GM/DL (12.0-16.0)
[2019-09-03 05:44] LABS: Hematocrit 17.4 VOL% (35.7-47.0)
[2019-09-03] MEDS ORDERED: SODIUM CHLORIDE 0.9% 1,000 ML IV PRN (05:49)
[2019-09-03] MEDS: APIXABAN 5 MG TABLET PO SCH ×2 (10:02→21:01)
[2019-09-03] MEDS: METOPROLOL TARTRATE 25 MG TABLET PO SCH ×2 (10:03→21:01)
[2019-09-03] MEDS: SILDENAFIL 20 MG TABLET PO SCH ×3 (10:03→21:00)
[2019-09-03] MEDS: ASPIRIN CHEW 81 MG TABLET PO SCH (10:03)
[2019-09-03] MEDS: PROPOFOL 1,000 MG/100 ML BOTTLE IV SCH (16:15)
[2019-09-03] MEDS: LEVOFLOXACIN INJ 750 MG in PREMIX 1 EACH IV SCH (18:01)
[2019-09-03] MEDS: SIMVASTATIN 20 MG TABLET PO SCH (18:02)
[2019-09-03 19:01] LABS: Hemoglobin 7.9 GM/DL (12.0-16.0)
[2019-09-03 19:36] VITALS: BP 121/89
[2019-09-04] MEDS: INSULIN REGULAR 100 UNIT/ML SUBCUT SCH ×4 (00:34→17:52)
[2019-09-04] MEDS: AZTREONAM 2,000 MG in SYRINGE 1 EACH IV SCH ×2 (02:12→14:14)
[2019-09-04] MEDS: methylPREDNISolone SOD SUC 40 MG/1 ML VIAL IV SCH (02:12)
[2019-09-04] MEDS: ALBUTEROL/IPRATROPIUM 3 ML NEB RESP TX SCH ×4 (02:25→19:40)
[2019-09-04 03:04] LABS: Basophils # 0.1 10*3/uL (0.0-0.2); Basophils % 0.3 % (0.0-0.8); Hematocrit 24.2 VOL% (35.7-47.0); Hemoglobin 7.6 GM/DL (12.0-16.0); Immature Granulocytes % 3.1 %; Immature Granulocytes Absolute 1.05 #; Lymphocytes # 2.3 10*3/uL (1.4-4.0); Lymphocytes % 6.8 % (21.3-54.2); Mean Corpuscular HGB Conc 31.4 GM/DL (32-36); Mean Platelet Volume 9.7 FL (9.6-12.0); Monocytes % 5.9 % (1.7-12.7); NRBC # 0.35 10*3/uL; Neutrophils % 83.9 % (38.7-73.9); Platelet Count 180 T/CUMM (130-400); Red Blood Count 2.52 MC/CUMM (3.8-5.5); Red Cell Distribution Width 15.9 % (9.3-17.3); White Blood Count 33.4 T/CUMM (4-12)
[2019-09-04 03:08] LABS: ABG Base Excess -4.4 MMOL/L (-2.5-2.5); ABG HCO3 20.7 MMOL/L (20-26); ABG TCO2 24.3 MMOL/L (23-27); Allen Test Positive
[2019-09-04 03:12] LABS: ABG PH 7.154 (7.35-7.45)
[2019-09-04 03:13] LABS: ABG PCO2 71.7 MM HG (35-48)
[2019-09-04 03:24] LABS: Band Neutrophils 3 % (0-10); Lymphocytes 4 % (20-55); Nucleated Red Blood Cells 1 (0-5); Segmented Neutrophils 86 % (50-85); Total Cells Counted 100
[2019-09-04 03:25] LABS: Anisocytosis 1+; Ovalocytes 1+; Platelet Estimate Normal; Polychromasia Few
[2019-09-04 03:42] LABS: Bilirubin,Total 0.4 MG/DL (0.2-1.0); Calcium 8.2 MG/DL (8.5-10.1); Total Protein 5.1 G/DL (6.4-8.3)
[2019-09-04] MEDS ORDERED: SODIUM CHLORIDE 0.9% 500 ML IV ONE (03:51)
[2019-09-04] MEDS ORDERED: dilTIAZem Drip 125 MG/125 ML PREMIX IV SCH (04:00)
[2019-09-04] MEDS ORDERED: SODIUM CHLORIDE 0.9% 1,000 ML IV SCH (04:00)
[2019-09-04] MEDS: MORPHINE 4 MG/1 ML VIAL IV PRN ×4 (04:06→23:37)
[2019-09-04 04:41] LABS: Apearance,Urine CLOUDY (Clear); Bacteria,Urine Few /HPF (Few); Bilirubin,Urine Negative (Negative); Blood, Urine Large mg/dL (Negative); Glucose,Urine (UA) Negative (Negative); Hyaline Casts,Urine 7 /LPF (0-3); Ketones,Urine Negative (Negative); Mucus,Urine Occasional /LPF (Occasional); Nitrite,Urine Negative (Negative); Protein,Urine Negative; RBC,Urine 397 /HPF (0-4); Squamous Epithelial Cell,Urine Occasional /HPF (0-10); Uric Acid Crystals,Urine Occasional /HPF (<1); Urine Color Yellow (Yellow); Urine Specific Gravity 1.018 (1.001-1.035); Urine Urobilinogen < 2.0 EU/DL (0.2-1.0); WBC,Urine 4 /HPF (0-6)
[2019-09-04 04:58] LABS: ABG Base Excess -3.6 MMOL/L (-2.5-2.5); ABG HCO3 21.4 MMOL/L (20-26); ABG Oxygen Saturation 99.7 % (95-100); ABG PCO2 53.9 MM HG (35-48); ABG PH 7.251 (7.35-7.45); ABG TCO2 22.8 MMOL/L (23-27)
[2019-09-04] MEDS: FAMOTIDINE 20 MG/2 ML VIAL IV SCH ×2 (05:41→17:15)
[2019-09-04] MEDS ORDERED: VANCOMYCIN INJ 1,250 MG in SODIUM CHLORIDE 0.9% 250 ML IV SCH (08:00)
[2019-09-04 08:43] LABS: ABG Base Excess -3.3 MMOL/L (-2.5-2.5); ABG HCO3 21.7 MMOL/L (20-26); ABG Oxygen Saturation 99.9 % (95-100); ABG PH 7.232 (7.35-7.45); ABG TCO2 23.6 MMOL/L (23-27); Pt O2 Delivery Device BIPAP
[2019-09-04 09:48] LABS: Apearance,Urine CLEAR (Clear); Bilirubin,Urine Negative (Negative); Blood, Urine Negative (Negative); Glucose,Urine (UA) Negative (Negative); Ketones,Urine Negative (Negative); Nitrite,Urine Negative (Negative); Protein,Urine Negative; RBC,Urine <1 /HPF (0-4); Urine Color Colorless (Yellow); Urine Specific Gravity 1.001 (1.001-1.035); Urine Urobilinogen < 2.0 EU/DL (0.2-1.0)
[2019-09-04] MEDS: SILDENAFIL 20 MG TABLET PO SCH ×2 (11:19→16:39)
[2019-09-04] MEDS: ASPIRIN CHEW 81 MG TABLET PO SCH (11:19)
[2019-09-04] MEDS: METOPROLOL TARTRATE 25 MG TABLET PO SCH (11:19)
[2019-09-04] MEDS: SIMVASTATIN 20 MG TABLET PO SCH (17:15)
[2019-09-05] MEDS: MORPHINE 4 MG/1 ML VIAL IV PRN (05:49)
== END 2019-09-05 10:34 | disposition expired | DRG 208 ==
LOC: N.CC 15:15 → SUATTDRO 15:15 → N.CC 15:20
PROVIDERS: ADMIT Internal Medicine; ATTEND Internal Medicine